=== PATIENT | male | born 1980 | race Caucasian/White ===

== ENCOUNTER 2018-03-04 14:01 | Emergency (ER) | payer OTHER ==
[~2018-03-04] VITALS: Ht 165.1 cm; Wt 113.4 kg
[2018-03-04 15:41] LABS: ABSOLUTE BASOPHIL COUNT 0 /CUMM (0.0-0.2); ABSOLUTE EOSINOPHIL COUNT 0.2 /CUMM (0.0-0.7); ABSOLUTE GRANULOCYTE CT 4.7 /CUMM (1.4-6.5); ABSOLUTE LYMPH COUNT 1.8 /CUMM (1.2-3.4); ABSOLUTE MONOCYTE COUNT 0.4 /CUMM (0.10-0.60); BASOPHIL % 0.3 % (0.0-2.0); EOSINOPHIL % 2.7 % (0-5); HEMATOCRIT 46.2 % (42-52); MEAN CORPUSCULAR HGB 28.8 PG (27.0-31.0); MEAN CORPUSCULAR HGB CONC 33.7 G/DL (33.0-37.0); MEAN CORPUSCULAR VOLUME 85.3 FL (80.0-94.0); MEAN PLATELET VOLUME 7.1 FL (7.4-10.4); PLATELET COUNT 291 /CUMM (130-400); RBC DISTRIBUTION WIDTH 13.3 % (11.5-14.5); RED BLOOD CELL CT 5.41 /CUMM (4.70-6.10); WHITE BLOOD CELL COUNT 7.1 /CUMM (4.8-10.8)
--- NOTE | 2018-03-04 19:18 | ED PSYCHIATRIC COMPLAINT ---
History of Present Illness General Chief Complaint: Psychiatric Related Complaint Stated Complaint: WANTS TO DETOX FROM ALCOHOL Source: patient, family Exam Limitations: no limitations Vital Signs & Intake/Output Vital Signs & Intake/Output Vital Signs Date Time Temp Pulse Resp B/P B/P Pulse O2 O2 Flow FiO2 Mean Ox Delivery Rate 03/04 1933 98.4 56 18 138/90 99 03/04 1709 98.2 63 18 131/72 98 Room Air 03/04 1507 98.3 64 16 141/83 98 Room Air 03/04 1500 98.8 74 18 124/65 97 Room Air Allergies Coded Allergies: No Known Allergies (03/04/18) Reconcile Medications Chlordiazepoxide HCl 25 MG CAPSULE 1 CAP PO AD ALCOHOL DEPENDENCY DAY 1 TAKE ONE TAB THREE TIMES A DAY DAY 2 TAKE ONE TAB TWICE A DAY DAY 3 TAKE ONE TAB Triage Note: 37 YEAR OLD MALE TO ER REQUESTING ETOH DETOX , PT HAS BIPOLAR AND DEPRESSION AND TAKES ALL MEDS PRESCRIBED, STATES THAT HE HAS BEEN A BINGE DRINKER FOR THE PAST 24 YEARS AND NEEDS HELP. DENIES SI /HI/ OR DRUG USE. LAST DRANK TWISTED TEA AROUND NOON. Triage Nurses Notes Reviewed? yes Onset: Gradual Duration: constant Timing: recent history HPI: Patient is a 37-year-old male who presents emergency room with requests of alcohol detoxification which all evaluation and treatment. Patient states that he has had extensively long history of binge drinking over is not seat inpatient or outpatient therapy except for a meeting switch she is not currently having a sponsor nor going to meetings, patient does present with brother in which his last beverage was noon patient DRANK TWO twisted teas. Patient denies any alcohol withdrawal seizures or delirium tremens denies any illicit drug use denies any fever chills suicide homicidal ideation current nausea or tremors. Denies any auditory or visual hallucinations Patient does state that 2 days ago he was arrested for DUI (Dillan Giles) Past History Travel History Traveled to [place] past 21 day No Medical History Any Pertinent Medical History? see below for history Neurological: NONE EENT: NONE Cardiovascular: NONE Respiratory: NONE Gastrointestinal: NONE Hepatic: NONE Renal: NONE Musculoskeletal: NONE Psychiatric: bipolar disease, depression Endocrine: NONE Blood Disorders: NONE Cancer(s): NONE SUPERMARKET MANAGER/Reproductive: NONE Surgical History Surgical History: non-contributory Psychosocial History What is your primary language Divehi Tobacco Use: Never used ETOH Use: heavy use Illicit Drug Use: denies illicit drug use Family History Hx Contributory? No (Dillan Giles) Review of Systems Review of Systems Constitutional: Reports: no symptoms. EENTM: Reports: no symptoms. Respiratory: Reports: no symptoms. Cardiovascular: Reports: no symptoms. GI: Reports: no symptoms. Genitourinary: Reports: no symptoms. Musculoskeletal: Reports: no symptoms. Skin: Reports: no symptoms. Neurological/Psychological: Reports: no symptoms. Hematologic/Endocrine: Reports: no symptoms. Immunologic/Allergic: Reports: no symptoms. All Other Systems: Reviewed and Negative (Dillan Giles) Physical Exam Physical Exam General Appearance: no apparent distress, alert, comfortable Head: atraumatic Eyes: Bilateral: normal appearance. Ears, Nose, Throat: normal pharynx, normal ENT inspection Neck: normal inspection, supple Respiratory: normal breath sounds, chest non-tender Cardiovascular: regular rate/rhythm Neurological/Psychiatric: no motor/sensory deficits, awake, alert, calm Appearance/Memory/Insight: denies illness Behavoir/Eye Contact/Speech: cooperative Thoughts/Hallucinations: no apparent hallucination Skin: intact, normal color, warm/dry SAD PERSONS Done? patient not suicidal (Dillan Giles) Progress Differential Diagnosis: drug intoxication, drug overdose, drug withdrawal, electrolyte abnormality, encephalitis, hypoglycemia, hypothyroidism, IC hem/mass /tumor, meningitis Plan of Care: Orders Procedure Date/time Status [facility] 03/04 1732 Active URINE DRUG SCREEN FOR ER ONLY 03/04 1505 Complete ETHANOL 03/04 1505 Complete COMPREHENSIVE METABOLIC PANEL 03/04 1505 Complete CBC WITHOUT DIFFERENTIAL 03/04 1505 Complete Laboratory Tests 03/04/18 1527: Urine Opiates Screen < 100, Methadone Screen < 40, Barbiturate Screen < 60, Ur Phencyclidine Scrn < 6.00, Amphetamines Screen < 100, U Benzodiazepines Scrn 110 , Urine Cocaine Screen < 50, Urine Cannabis Screen < 5.00 03/04/18 1519: Anion Gap 10, Estimated GFR > 60, BUN/Creatinine Ratio 14.0, Glucose 94, Calcium 10.1, Total Bilirubin 0.6, AST 36, ALT 51, Alkaline Phosphatase 98, Total Protein 7.9, Albumin 4.8, Globulin 3.1, Albumin/Globulin Ratio 1.5, CBC w Diff NO MAN DIFF REQ, RBC 5.41, MCV 85.3, MCH 28.8, MCHC 33.7, RDW 13.3, MPV 7.1 L, Gran % 66.0, Lymphocytes % 25.3, Monocytes % 5.7, Eosinophils % 2.7, Basophils % 0.3, Absolute Granulocytes 4.7, Absolute Lymphocytes 1.8, Absolute Monocytes 0.4 , Absolute Eosinophils 0.2, Absolute Basophils 0, Serum Alcohol < 10.0 Patient currently shows no signs of intoxication Blood alcohol of 0 CIWA ZERO I had a long extensive conversation with patient and brother who have seemingly were upset for not admitting patient to the hospital which I discussed with them that hospital policy shows no signs of wanting of admission at this time. Patient was given Librium and was given referrals list for detox facilities. (Dillan Giles) Departure Departure Disposition: HOME OR SELF CARE Condition: Stable Clinical Impression Primary Impression: Alcohol abuse Referrals: Vaishnavi MULLEN,Chris Chowdhury (PCP/Family) Additional Instructions: As discussed please discontinue the use of alcohol, please follow-up with the list of providers of detox facilities provided to the emergency room, begin the prescription of Librium as directed, prescriptions waiting a [facility] If symptoms worsen or IF YOU develop new concerning symptom return to emergency room [facility] [phone] Website Directions [id number] [employer] [facility] in [place], [place] Address: [address] [place] [address], [place] [address] Hours: Closed Opens 8AM Steph Departure Forms: Customer Survey General Discharge Information Prescriptions: Current Visit Scripts Chlordiazepoxide HCl 1 CAP PO AD #6 CAP DAY 1 TAKE ONE TAB THREE TIMES A DAY DAY 2 TAKE ONE TAB TWICE A DAY DAY 3 TAKE ONE TAB (Dillan Giles) PA/[employer]ARMWORK[employer] Co-Sign Statement Statement: ED Attending supervision documentation- I saw and evaluated the patient. I have also reviewed all the pertinent lab results and diagnostic results. I agree with the findings and the plan of care as documented in the PA's/FARMWORKER FUR's documentation. x I have reviewed the ED Record and agree with the PA's/FARMWORKER FUR's documentation. [] Additions or exceptions (if any) to the PAs/FARMWORKER FUR's note and plan are summarized below: [] (Vanessa MULLEN,Justin)
[2018-03-04] MEDS ORDERED: CHLORDIAZEPOXID25 M3 PO (20:20)
== END 2018-03-04 20:27 ==
LOC: ERH 14:01
PROVIDERS: Emergency Medicine
DX: F10.10 Alcohol abuse, uncomplicated (principal)
CPT/HCPCS: 80307; G0480